=== PATIENT | female | born 2000 | race Caucasian/White ===

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

== ENCOUNTER 2024-07-13 22:36 | Emergency (ER) | payer OTHER ==
[2024-07-13 22:50] VITALS: BP 125/63; PULSE 61; RESP 18; TEMP 98.5; BMI 36.9
[2024-07-13] MEDS ORDERED: IBUPROFEN 600 MG TABLET (FP) PO ONE (23:30)
[2024-07-13] MEDS ORDERED: METHOCARBAMOL 500 MG TABLET ONE (23:30)
[2024-07-13] MEDS: METHOCARBAMOL 500 MG TABLET PO ONE (23:32)
[2024-07-13] MEDS: IBUPROFEN 600 MG TABLET (FP) PO ONE (23:32)
[2024-07-14] MEDS ORDERED: ONDANSETRON *ODT* 4 MG TABLET SL ONE (00:53)
== END 2024-07-14 01:13 | disposition home or self-care (01) ==
LOC: JER 22:36
DX: M54.50 Low back pain, unspecified (principal); M54.2 Cervicalgia; V49.40XA Driver injured in collision with unspecified motor vehicles in traffic accident, initial encounter; Y92.410 Unspecified street and highway as the place of occurrence of the external cause
CPT/HCPCS: 99283-25